=== PATIENT | female | born 1945 | race Caucasian/White ===

== ENCOUNTER → 2023-10-01 | Emergency (ER) | payer OTHER ==
[~2023-10-01] MED LIST: LIDOCAINE 1% MPF 5 ML VIAL ONE; TDAP (DIPHTH,PERTUSS(ACELL),TET VAC) 0.5 ML VIAL IMVAC ONE
--- NOTE | 2023-10-01 18:34 | RAD REPORT ---
EXAM DESCRIPTION: CT - CTHCSPWOC - 10/01/2023 5:41 pm CLINICAL HISTORY: TRAUMA COMPARISON: No comparisons TECHNIQUE: Axial thin cut noncontrast CT images of the head were obtained. Axial thin cut noncontrast CT images of the cervical spine were obtained. Multiplanar reformatted images were generated and reviewed. All CT scans are performed using dose optimization technique as appropriate and may include automated exposure control or mA/KV adjustment according to patient size. FINDINGS: CT HEAD WITHOUT CONTRAST: No acute hemorrhage, hydrocephalus or extra-axial collection is identified.No areas of brain edema or midline shift. The paranasal sinuses and mastoids are clear.The calvarium is intact. Small hematoma/soft tissue swe lling at the vertex. CT CERVICAL SPINE WITHOUT CONTRAST: No fracture or subluxation.Straightening of normal cervical lordosis which may be positional or secon ankit to muscle spasm. Multilevel [id number] facet degenerative changes, contributing to up to m oderate neural foraminal narrowing bilaterally at C3-4.No prevertebral soft tissues swelling is ident ified. IMPRESSION: No acute traumatic intracranial or cervical spine findings. Scalp swelling/ small hematoma at the vertex. Moderate degenerative changes of the cervical spine as above.
--- NOTE | 2023-10-01 19:25 | EDPHYS ---
Physician Documentation [facility] Name: Roxane Park Age: 78 yrs Sex: Female : 1945 Arrival Date: 10/01/2023 Time: 16:44 Bed Treatment Private MD: ED Physician Magdaleno Oviedo HPI: 09/30 17:20 This 78 yrs old Female presents to ER via Unassigned with complaints of Fall Injury. rt 17:20 Patient presents to the ED with a fall. Patient lost her balance, causing a fall rt backwards causing laceration. Denies loss of consciousness, neck pain. Denies concern for other injury, other acute complaints, symptoms are mild in severity, no other aggravating alleviating factors. Historical: - PMHx: 17:32 Parkinson's disease; ko1 - Immunization history:: Adult Immunizations unknown, Last tetanus immunization: unknown. - Social history:: Smoking status: Patient denies any tobacco usage or history of. - Family history:: not pertinent. ROS: 17:20 Constitutional: Negative for fever, chills, and weight loss, Neck: Negative for injury, rt pain, and swelling, Cardiovascular: Negative for chest pain, palpitations, and edema, Respiratory: Negative for shortness of breath, cough, wheezing, and pleuritic chest pain, Abdomen/GI: Negative for abdominal pain, nausea, vomiting, diarrhea, and constipation, MS/Extremity: Negative for injury and deformity, Neuro: Negative for headache, weakness, numbness, tingling, and seizure, Psych: Negative for depression, anxiety, suicide ideation, homicidal ideation, and hallucinations, 17:20 Skin: Positive for laceration(s), Exam: 17:20 Constitutional: This is a well developed, well nourished patient who is awake, alert, rt and in no acute distress. Neck: Trachea midline, no thyromegaly or masses palpated, and no cervical lymphadenopathy. Supple, full range of motion without nuchal rigidity, or vertebral point tenderness. No Meningismus. Chest/axilla: Normal chest wall appearance and motion. Nontender with no deformity. No lesions are appreciated. Cardiovascular: Regular rate and rhythm with a normal S1 and S2. No gallops, murmurs, or rubs. Normal PMI, no JVD. No pulse deficits. Respiratory: Lungs have equal breath sounds bilaterally, clear to auscultation and percussion. No rales, rhonchi or wheezes noted. No increased work of breathing, no retractions or nasal flaring. Abdomen/GI: Soft, non-tender, with normal bowel sounds. No distension or tympany. No guarding or rebound. No evidence of tenderness throughout. Skin: Warm, dry with normal turgor. Normal color with no rashes, no lesions, and no evidence of cellulitis. MS/ Extremity: Pulses equal, no cyanosis. Neurovascular intact. Full, normal range of motion. Neuro: Awake and alert, GCS 15, oriented to person, place, time, and situation. Cranial nerves II-XII grossly intact. Motor strength 5/5 in all extremities. Sensory grossly intact. Cerebellar exam normal. Normal gait. 17:20 Head/face: 2 cm laceration noted to the posterior scalp, no active bleeding, no other external evidence of trauma. Vital Signs: 17:31 BP 137 / 62; Pulse 84; Resp 15; Temp 97; Pulse Ox 99% on R/A; ko1 Laceration: 19:58 Wound Repair of 3cm ( 1.2in ) subcutaneous laceration to scalp and back of head. rt Irregularly shaped.. Distal neuro/vascular/tendon intact. Anesthesia: Local anesthetic administered with 2 mls of 1% lidocaine. Wound prep: Extensive cleansing by nurse, Copious irrigation. Skin closed with 3 1-0 [place] using staple gun. Patient tolerated well. MDM: 16:50 Patient medically screened. rt 19:58 Differential diagnosis: Intracranial hemorrhage, scalp laceration, skull fracture. Data rt reviewed: vital signs, nurses notes, radiologic studies. Independent interpretation of the following test(s) in the Emergency Department CT Scan: My interpretation is No intracranial hemorrhage seen on interpretation of CT scan images. Test considered but Not performed: Other Details Patient reports no syncopal symptoms, labs, EKG are not indicated. Care significantly affected by the following chronic conditions: Parkinson's disease. Counseling: I had a detailed discussion with the patient and/or guardian regarding the historical points, exam findings, and any diagnostic results supporting the discharge/admit diagnosis, radiology results, the need for outpatient follow up. 09/30 16:51 Order name: CT Head C Spine; Complete Time: 18:38 rt 09/30 16:51 Order name: Wound Care; Complete Time: 17:23 rt Administered Medications: 17:19 Drug: Boostrix Tdap IM 0.5 ml IM once; as a single dose Route: IM; Site: left deltoid; ko1 17:39 Follow up: Response: (VIS) Vaccine information sheet provided today. Questions and/or ko1 concerns addressed. VIS edition date: Feb 23, 2021.; No adverse reaction 19:20 Drug: Lidocaine Infiltration (1 %) 5 ml 5 ml Infiltration once; to bedside {Note: admin iw by Dr. Oviedo .} Volume: 5 ml; Route: Infiltration; Disposition Summary: 10/01/23 19:25 Discharge Ordered Notes: Location: Home rt Condition: Stable rt Diagnosis - Mechanical fall rt - Scalp laceration rt Followup: rt - With: Private Physician - When: 10 - 14 days - Reason: Staple/Suture removal Discharge Instructions: - Discharge Summary Sheet rt - Fall Prevention in the Home, Adult rt - Laceration Care, Adult rt Forms: - Medication Reconciliation Form rt - Thank You Letter rt - Antibiotic Education rt - Prescription Opioid Use rt - Patient Portal Instructions rt - Leadership Thank You Letter rt Signatures: Dispatcher [employer] Izabella Miguel, RN RN iw Lauren Crowder RN RN ko1 Magdaleno Oviedo MD MD rt
--- NOTE | 2023-10-01 19:25 | ER ---
Nurse's Notes [facility] Name: Roxane Park Age: 78 yrs Sex: Female : 1945 Arrival Date: 10/01/2023 Time: 16:44 Bed Treatment Private MD: Diagnosis: Mechanical fall;Scalp laceration Presentation: 09/30 16:45 Chief complaint: EMS states: pt was standing , she lost her balance, fell back and hit iw her head, denies LOC, not on blood thinners, she just completed PT a week ago. 16:46 Acuity: CRISTOFER 4 iw 17:31 Coronavirus screen: At this time, the client does not indicate any symptoms associated ko1 with coronavirus-19. Ebola Screen: No symptoms or risks identified at this time. Initial Sepsis Screen: Does the patient meet any 2 criteria? No. Patient's initial sepsis screen is negative. Does the patient have a suspected source of infection? No. Patient's initial sepsis screen is negative. Risk Assessment: Do you want to hurt yourself or someone else? Patient reports no desire to harm self or others. Onset of symptoms was October 01, 2023. 17:31 Method Of Arrival: EMS: [facility] ko1 Triage Assessment: 17:32 General: Appears in no apparent distress. Behavior is calm, cooperative, appropriate ko1 for age. Pain: Complains of pain in back of head. Historical: - PMHx: 17:32 Parkinson's disease; ko1 - Immunization history:: Adult Immunizations unknown, Last tetanus immunization: unknown. - Social history:: Smoking status: Patient denies any tobacco usage or history of. - Family history:: not pertinent. Screenin:34 [facility] ED Fall Risk Assessment (Adult) History of falling in the last 3 months, ko1 including since admission Yes- single mechanical fall (1 pt) Confusion or Disorientation No (0 pts) Intoxicated or Sedated No (0 pts) Impaired Gait Yes (1 pt) Mobility Assist Device Used No (0 pt) Altered Elimination No (0 pt) Score/Fall Risk Level 0 - 2 = Low Risk Oriented to surroundings, Maintained a safe environment, Educated pt \T\ family on fall prevention, incl call for assistance when getting out of bed, Assessed \T\ reinforced patient's understanding of fall precautions, Provided non-skid footwear, Hourly rounding (assess needs \T\ fall precautionary measures) done, Used ambulatory aids as needed (educated on \T\ assisted with), Used gait belt as appropriate. Abuse screen: Denies threats or abuse. Denies injuries from another. Nutritional screening: No deficits noted. Tuberculosis screening: No symptoms or risk factors identified. Assessment: 17:34 Neuro: No deficits noted. Cardiovascular: No deficits noted. Respiratory: No deficits ko1 noted. GI: No deficits noted. : No deficits noted. EENT: No deficits noted. Derm: No deficits noted. Musculoskeletal: Swelling present in back of head. Injury Description: Laceration sustained to back of head is clean, a small amount of bleeding noted at this time. 19:50 Reassessment: Patient appears in no apparent distress at this time. Patient and/or iw family updated on plan of care and expected duration. Pain level reassessed. Patient is alert, oriented x 3, equal unlabored respirations, skin warm/dry/pink. Patient states feeling better. Vital Signs: 17:31 BP 137 / 62; Pulse 84; Resp 15; Temp 97; Pulse Ox 99% on R/A; ko1 ED Course: 16:45 Patient arrived in ED. iw 16:46 Triage completed. iw 16:50 Magdaleno Oviedo MD is Attending Physician. rt 17:02 Lauren Crowder, RN is Primary Nurse. ko1 17:32 Arm band placed on right wrist. Patient placed in an exam room, on a stretcher, on ko1 case monitor, on pulse oximetry, Patient notified of wait time. 17:34 Patient has correct armband on for positive identification. Bed in low position. Call ko1 light in reach. Side rails up X2. Provided Education on: na. Pulse ox on. NIBP on. Door closed. Noise minimized. Lights dimmed. Warm blanket given. Family accompanied patient. 17:34 Wound care: to laceration located on back of head was cleaned with Betadine, irrigated ko1 with normal saline, Patient tolerated well. 17:42 CT Head C Spine In Process Unspecified. EDMS 19:02 Assisted to bathroom. aw1 19:40 Assist provider with laceration repair on back of head that was 2.5 cm. or less using iw luann. Set up tray. Performed by Magdaleno Oviedo MD Patient tolerated well. 20:06 Patient did not have IV access during this emergency room visit. iw Administered Medications: 17:19 Drug: Boostrix Tdap IM 0.5 ml IM once; as a single dose Route: IM; Site: left deltoid; ko1 17:39 Follow up: Response: (VIS) Vaccine information sheet provided today. Questions and/or ko1 concerns addressed. VIS edition date: Feb 23, 2021.; No adverse reaction 19:20 Drug: Lidocaine Infiltration (1 %) 5 ml 5 ml Infiltration once; to bedside {Note: admin iw by Dr. Oviedo .} Volume: 5 ml; Route: Infiltration; Medication: 17:34 Vaccine Information Statement (VIS) provided today. Questions and/or concerns ko1 addressed. VIS edition date: October 01, 2023. Outcome: 19:25 Discharge ordered by . rt 20:04 Discharged to home via wheelchair, with family, iw 20:04 Discharge instructions given to patient, family, Instructed on discharge instructions, follow up and referral plans. wound care, Demonstrated understanding of instructions, follow-up care, wound care, Prescriptions given X 20:05 Patient left the ED. iw 20:07 Condition: good iw Signatures: Dispatcher [employer] EDMS Izabella Cervantes RN RN iw Lauren Crowder RN RN ko1 Magdaleno Oviedo MD MD rt Noemi Perez aw1 Corrections: (The following items were deleted from the chart) 20:07 17:34 No provider procedures requiring assistance completed. ko1 iw
[2023-10-01 20:29] VITALS: BP 137/62; TEMP 97; O2SAT 99
== END ==
LOC: ER 16:44
PROC: 0HQ0XZZ Repair Scalp Skin, External Approach (ICD-10-PCS; principal; 2023-10-01)
DX: S01.01XA Laceration without foreign body of scalp, initial encounter (principal); W18.30XA Fall on same level, unspecified, initial encounter; G20.A1 Parkinson's disease without dyskinesia, without mention of fluctuations
CPT/HCPCS: 70450; 72125; 12002; J2001